=== PATIENT | male | born 2000 | race Hispanic/Latino ===

== ENCOUNTER 2024-10-10 19:26 | Emergency (ER) | payer OTHER ==
[~2024-10-10] VITALS: Ht 175.3 cm; Wt 81.6 kg
[2024-10-10 20:00] VITALS: PULSE 105; RESP 16; TEMP 99.9; O2SAT 100
[2024-10-10] MEDS ORDERED: OCUFLOX5 ML OS (20:22)
[2024-10-10] MEDS ORDERED: AMOX TR-K CLV1 EAC2 PO (20:22)
== END 2024-10-10 20:27 | disposition home or self-care (01) ==
LOC: ER 19:40
DX: R50.9 Fever, unspecified (principal); J32.9 Chronic sinusitis, unspecified; H10.9 Unspecified conjunctivitis
CPT/HCPCS: 99283